=== PATIENT | female | born 1960 | race Caucasian/White ===

== ENCOUNTER 2021-09-19 01:10 | Emergency (ER) | payer BC ==
[2021-09-19 01:51] LABS: CHLORIDE,CL 100 mEq/L (98-106); SODIUM,NA 140 mEq/L (136-145)
[2021-09-19] MEDS ORDERED: Iopamidol 755 Mg/ML 100 ML Bottle IVPUSH ONE (02:29)
[2021-09-19] MEDS: Iopamidol 755 Mg/ML 100 ML Bottle IVPUSH ONE (03:12)
== END 2021-09-19 03:58 | disposition home or self-care (01) ==
LOC: CC.ED 01:10
DX: J18.9 Pneumonia, unspecified organism (principal); Z79.899 Other long term (current) drug therapy; Z88.2 Allergy status to sulfonamides; Z88.1 Allergy status to other antibiotic agents
CPT/HCPCS: 36415; 71046; 71275; 80053; 85025; 85379; 86140; 93005; 99285-25